=== PATIENT | female | born 1985 | race Caucasian/White ===

== ENCOUNTER 2016-07-06 09:29 | Emergency (ER) | payer OTHER, MEDICAID ==
--- NOTE | 2016-07-06 10:30 | ER Document Report ---
ED Extremity Problem, Lower - General Chief Complaint: Leg Pain Stated Complaint: LEG PAIN Time seen by provider: 10:27 Mode of Arrival: Ambulatory Information source: Patient, Relative TRAVEL OUTSIDE OF THE [place] IN LAST 30 DAYS: No - HPI Location: Leg - Pt with 1 day h/o R calf pain. She has had multiple DVT's in the past treated by Dr. Poe in [place]. She is currently on eliSHADOW - Related Data Allergies/Adverse Reactions: caffeine [From Fioricet] Allergy (Severe, Verified 07/06/16 09:38) Face swells ibuprofen [From Motrin] Allergy (Severe, Verified 07/06/16 09:38) Triggers Lupus acetaminophen [From Fioricet] Allergy (Verified 07/06/16 09:38) butalbital [From Fioricet] Allergy (Verified 07/06/16 09:38) Past Medical History - General Information source: Patient, Relative - Social History Smoking Status: Never Smoker Cigarette use (# per day): No Chew tobacco use (# tins/day): No Smoking Education Provided: No Family History: Reviewed & Not Pertinent - Past Medical History Cardiac Medical History: Reports: Hx DVT Denies: Hx Coronary Artery Disease, Hx Heart Attack, Hx Hypertension Pulmonary Medical History: Reports: Hx Asthma - No attacks in 2 yrs, Hx Pneumonia - 2014 Denies: Hx Bronchitis, Hx COPD Neurological Medical History: Reports: Hx Cerebrovascular Accident - 04/2015, Some Rt sided weakness. Denies: Hx Seizures Musculoskeltal Medical History: Reports Hx Arthritis - Rheumatoid; Lupus Psychiatric Medical History: Reports: Hx Anxiety, Hx Depression Past Surgical History: Reports: Hx Neurologic Surgery - Brain surgery, Hx Umbilical Hernia, Hx Vascular Surgery - stents; left leg, pelvis x2 - Immunizations Hx Diphtheria, Pertussis, Tetanus Vaccination: Yes Review of Systems - Review of Systems Constitutional: No symptoms reported EENT: No symptoms reported Cardiovascular: No symptoms reported Respiratory: No symptoms reported Gastrointestinal: No symptoms reported Musculoskeletal: See HPI, Other - R calf pain -: Yes All other systems reviewed and negative Physical Exam - Vital signs Vitals: Temp Pulse Resp BP Pulse Ox 98.2 F 102 H 18 124/81 99 07/06/16 09:35 07/06/16 09:35 07/06/16 09:35 07/06/16 09:35 07/06/16 09:35 - General General appearance: Appears well In distress: None - Respiratory Respiratory status: No respiratory distress Breath sounds: Normal - Cardiovascular Rhythm: Regular Heart sounds: Normal auscultation - Extremities Calf: Tender - there is TTP of the R calf diffusely with no erythema, warmth, or swelling. She has FROM and is N/V intact Course - Vital Signs Vital signs: Temp Pulse Resp BP Pulse Ox 98.2 F 102 H 18 124/81 99 07/06/16 09:35 07/06/16 09:35 07/06/16 09:35 07/06/16 09:35 07/06/16 09:35 - Diagnostic Test Radiology reviewed: Reports reviewed - chronic DVT , nothing acute Discharge - Discharge Clinical Impression: Right calf pain Condition: Stable Additional Instructions: rest, continue current meds, return if worse
[2016-07-06 13:33] VITALS: BP 106/64
--- NOTE | 2016-07-06 13:43 | XCELERA REPORT ---
[address] [address] Lower Extremity Venous Evaluation Name: MOLINA GONZALES Age: 30 yrs Gender: Female : 1985 Patient Status: Emergency Patient Location: ER Study Date: 07/06/2016 11:34 AM Procedure: Color flow and duplex imaging of the veins of the right lower extremity as well as the left Common Femoral vein. Reason For Study: R calf pain Ordering Physician: ALFRED EMANUEL Performed By: Christoph Reynolds Right Sided Venous Evaluation Abnormal, echogenic content in the Common Femoral and Femoral veins. With collateral blood flow. Reflux noted in the Posterior Tibial vein. Left Sided Venous Evaluation The left common femoral vein is fully compressible. Spontaneous and phasic flow is present in the left common femoral vein. Critical Findings Discussed with Dr Hansen at about 1300. Interpretation Summary Chronic looking DVT in the right Femoral system. reflux also. Consistent with history of prior DVT. : ALFRED EMANUEL > Naldo Feliz
== END 2016-07-06 13:33 | disposition home or self-care (01) ==
LOC: ER 09:29
DX: M79.661 Pain in right lower leg (principal)
CPT/HCPCS: 93971; 99283

== ENCOUNTER → 2016-10-16 | Outpatient (CLI) | payer OTHER, MEDICAID | LOC: RAD 13:03 | PROVIDERS: ATTEND Obstetrics & Gynecology | DX: M54.42 Lumbago with sciatica, left side (principal); M54.41 Lumbago with sciatica, right side | CPT/HCPCS: 72110 ==

== ENCOUNTER → 2017-02-17 | Outpatient (CLI) | payer OTHER, MEDICAID ==
[2017-02-17 13:23] LABS: HEMATOCRIT 42.4 % (36.0-47.0); HEMOGLOBIN 14.4 g/dL (12.0-15.5); HGB HCT DIFFERENCE 0.8; MEAN CORPUSCULAR HEMOGLOBIN 30.2 pg (27.0-33.4); MEAN CORPUSCULAR HGB CONC 33.9 g/dL (32.0-36.0); MEAN CORPUSCULAR VOLUME 89 fl (80-97); RED BLOOD COUNT 4.77 10^6/uL (3.72-5.28); RED CELL DISTRIBUTION WIDTH 13.1 % (11.5-14.0); WHITE BLOOD COUNT 4.7 10^3/uL (4.0-10.5)
[2017-02-19 08:10] LABS: EPSTEIN BARR EARLY AG IGG AB 10.8 U/mL (0.0-8.9)
== END ==
LOC: OD 12:35
PROVIDERS: ATTEND Obstetrics & Gynecology
DX: R53.83 Other fatigue (principal)
CPT/HCPCS: 36415; 85027; 86256; 86663; 86664; 86665

== ENCOUNTER 2017-03-05 09:43 | Emergency (ER) | payer MEDICAID, OTHER ==
--- NOTE | 2017-03-05 10:01 | ER Document Report ---
ED Medical Screen (RME) - General Chief Complaint: Swelling Stated Complaint: SWELLING AND HARD TO BREATH Time Seen by Provider: 03/05/17 09:55 TRAVEL OUTSIDE OF THE [place]. IN LAST 30 DAYS: No - HPI Notes: 03/05/17 09:56 Patient seen in by home health care nurse history of lupus SLE blood clots as IVC filter Eliquis states recent allergic reaction has been on high-dose prednisone for greater than a month now is having swelling no urine output for 2 days - Related Data Allergies/Adverse Reactions: caffeine [From Fioricet] Allergy (Severe, Verified 03/05/17 09:56) Face swells ibuprofen [From Motrin] Allergy (Severe, Verified 03/05/17 09:56) Triggers Lupus acetaminophen [From Fioricet] Allergy (Verified 03/05/17 09:56) butalbital [From Fioricet] Allergy (Verified 03/05/17 09:56) Past Medical History - Past Medical History Cardiac Medical History: Reports: Hx DVT Denies: Hx Coronary Artery Disease, Hx Heart Attack, Hx Hypertension Pulmonary Medical History: Reports: Hx Asthma - No attacks in 2 yrs, Hx Pneumonia - 2014 Denies: Hx Bronchitis, Hx COPD Neurological Medical History: Reports: Hx Cerebrovascular Accident - 04/2015, Some Rt sided weakness. Denies: Hx Seizures Renal/ Medical History: Denies: Hx Peritoneal Dialysis Musculoskeltal Medical History: Reports Hx Arthritis - Rheumatoid; Lupus Psychiatric Medical History: Reports: Hx Anxiety, Hx Depression Past Surgical History: Reports: Hx Neurologic Surgery - Brain surgery, Hx Umbilical Hernia, Hx Vascular Surgery - stents; left leg, pelvis x2 - Immunizations Hx Diphtheria, Pertussis, Tetanus Vaccination: Yes Review of Systems - Review of Systems Constitutional: Other - Swelling Physical Exam - Cardiovascular Rhythm: Regular, Tachycardia
--- NOTE | 2017-03-05 10:39 | RADIOLOGY REPORT (SQ) ---
EXAM DESCRIPTION: CHEST PA/LAT COMPLETED DATE/TIME: 03/05/2017 10:19 am REASON FOR STUDY: sob COMPARISON: 12/01/2013 EXAM PARAMETERS: NUMBER OF VIEWS: two views TECHNIQUE: Digital Frontal and Lateral radiographic views of the chest acquired. RADIATION DOSE: NA LIMITATIONS: none FINDINGS: LUNGS AND PLEURA: No opacities, masses or pneumothorax. No pleural effusion. MEDIASTINUM AND HILAR STRUCTURES: No masses or contour abnormalities. HEART AND VASCULAR STRUCTURES: Heart normal size. No evidence for failure. BONES: No acute findings. HARDWARE: None in the chest. OTHER: No other significant finding. IMPRESSION: NO SIGNIFICANT RADIOGRAPHIC FINDING IN THE CHEST. TECHNICAL DOCUMENTATION: JOB ID: [id number] [email or web address] All Rights Reserved
[2017-03-05 10:45] LABS: PARTIAL THROMBOPLASTIN TIME 25.2 SEC (23.5-35.8)
[2017-03-05 10:57] LABS: HEMOGLOBIN 13.2 g/dL (12.0-15.5); HGB HCT DIFFERENCE -0.4; MEAN CORPUSCULAR HGB CONC 33.1 g/dL (32.0-36.0); MEAN CORPUSCULAR VOLUME 91 fl (80-97); RED BLOOD COUNT 4.42 10^6/uL (3.72-5.28); RED CELL DISTRIBUTION WIDTH 13.9 % (11.5-14.0); WHITE BLOOD COUNT 16.2 10^3/uL (4.0-10.5)
--- NOTE | 2017-03-05 11:02 | ER Document Report ---
ED General - General Chief Complaint: Swelling Stated Complaint: SWELLING AND HARD TO BREATH Time Seen by Provider: 03/05/17 09:55 Notes: The patient is a 31-year-old female, past medical history SLE, DVTs, PAD, presents with 3 days of peripheral edema and mild shortness of breath. She is taking Eliquis and has an IVC filter. Patient has been on steroids for 1 month and has a taper scheduled for the next month due to an allergic reaction and because of her SLE. Patient denies chest pain, hemoptysis, cough, fevers, abdominal pain, nausea, vomiting, numbness, tingling or leg injuries. TRAVEL OUTSIDE OF THE [place] IN LAST 30 DAYS: No - Related Data Allergies/Adverse Reactions: caffeine [From Fioricet] Allergy (Severe, Verified 03/05/17 09:56) Face swells ibuprofen [From Motrin] Allergy (Severe, Verified 03/05/17 09:56) Triggers Lupus acetaminophen [From Fioricet] Allergy (Verified 03/05/17 09:56) butalbital [From Fioricet] Allergy (Verified 03/05/17 09:56) Home Medications: Current Home Medications Prednisone 30 mg PO BID 03/05/17 [History] Past Medical History - General Information source: Patient - Social History Smoking Status: Current Some Day Smoker Family History: Reviewed & Not Pertinent Patient has suicidal ideation: No Patient has homicidal ideation: No - Past Medical History Cardiac Medical History: Reports: Hx DVT Denies: Hx Coronary Artery Disease, Hx Heart Attack, Hx Hypertension Pulmonary Medical History: Reports: Hx Asthma - No attacks in 2 yrs, Hx Pneumonia - 2014 Denies: Hx Bronchitis, Hx COPD Neurological Medical History: Reports: Hx Cerebrovascular Accident - 04/2015, Some Rt sided weakness. Denies: Hx Seizures Renal/ Medical History: Denies: Hx Peritoneal Dialysis Musculoskeltal Medical History: Reports Hx Arthritis - Rheumatoid; Lupus Psychiatric Medical History: Reports: Hx Anxiety, Hx Depression Past Surgical History: Reports: Hx Neurologic Surgery - Brain surgery, Hx Umbilical Hernia, Hx Vascular Surgery - stents; left leg, pelvis x2 - Immunizations Hx Diphtheria, Pertussis, Tetanus Vaccination: Yes Review of Systems - Review of Systems Notes: REVIEW OF SYSTEMS: CONSTITUTIONAL: -fevers, -chills EENT: -eye pain, -difficulty swallowing, -nasal congestion CARDIOVASCULAR:-chest pain, -syncope. RESPIRATORY: -cough, -SOB GASTROINTESTINAL: -abdominal pain, - nausea, -vomiting, -diarrhea GENITOURINARY: -dysuria, -hematuria MUSCULOSKELETAL: -back pain, -neck pain, +peripheral edema SKIN: -rash or skin lesions. HEMATOLOGIC: -easy bruising or bleeding. LYMPHATIC: -swollen, enlarged glands. NEUROLOGICAL: -altered mental status or loss of consciousness, -headache, - neurologic symptoms PSYCHIATRIC: -anxiety, -depression. ALL OTHER SYSTEMS REVIEWED AND NEGATIVE. Physical Exam - Vital signs Vitals: Resp BP Pulse Ox 24 H 120/71 97 03/05/17 10:45 03/05/17 10:45 03/05/17 10:45 - Notes Notes: PHYSICAL EXAMINATION: GENERAL: Well-appearing, well-nourished and in no acute distress. HEAD: Atraumatic, normocephalic. EYES: Pupils equal round and reactive to light, extraocular movements intact, sclera anicteric, conjunctiva are normal. ENT: nares patent, oropharynx clear without exudates. Moist mucous membranes. NECK: Normal range of motion, supple without lymphadenopathy LUNGS: Breath sounds clear to auscultation bilaterally and equal. No wheezes rales or rhonchi. No respiratory distress. HEART: Regular rate and rhythm without murmurs ABDOMEN: Soft, nontender, normoactive bowel sounds. No guarding, no rebound. No masses appreciated. EXTREMITIES: Normal range of motion. Strong distal pulses. 1+ edema to ankles. NEUROLOGICAL: Cranial nerves grossly intact. Normal speech, normal gait. Normal sensory and motor exams. PSYCH: Normal mood, normal affect. SKIN: Warm, Dry, normal turgor, no rashes or lesions noted. Course - Re-evaluation Re-evalutation: Patient is in no respiratory distress. Her chest x-ray does not show pulmonary edema and she is oxygenating 98% on room air. Her labs are unremarkable, other than a leukocytosis, which is most likely from her chronic steroid use and not infection. Her ultrasound shows no DVT. Suspect that her mild peripheral edema is from her large steroid course where she was started on 380 mg prednisone daily by her primary care physician. She has a slow taper over the next 3 weeks. Pt also has positive leukocyte esterase and 5 WBCs with urinary hesitancy. Will begin her on Macrobid. Patient will be also started on a few days of Lasix to help with the peripheral edema with f/u at her PMD. Given very strict return precautions and she understands. - Vital Signs Vital signs: Temp Pulse Resp BP Pulse Ox 82 16 113/70 97 03/05/17 13:08 03/05/17 13:08 03/05/17 13:08 03/05/17 13:08 - Laboratory Result Diagrams: 03/05/17 10:10 03/05/17 10:10 Laboratory results interpreted by me: 03/05/17 03/05/17 03/05/17 10:10 10:10 10:10 WBC 16.2 H Seg Neuts % (Manual) 79 H Band Neutrophils % 1 L Metamyelocytes % 1 H Abs Neuts (Manual) 13.1 H BUN 22 H NT-Pro-B Natriuret Pep 273 H Ur Leukocyte Esterase 03/05/17 12:04 WBC Seg Neuts % (Manual) Band Neutrophils % Metamyelocytes % Abs Neuts (Manual) BUN NT-Pro-B Natriuret Pep Ur Leukocyte Esterase MODERATE H - Diagnostic Test Radiology reviewed: Image reviewed, Reports reviewed Radiology results interpreted by me: CXR: NAD B/L LE US: No DVTs. - EKG Interpretation by Me EKG shows normal: Sinus rhythm, [place], Intervals, QRS Complexes, ST-T Waves Rate: Normal Discharge - Discharge Clinical Impression: Dysuria, Peripheral edema Condition: Stable Disposition: HOME, SELF-CARE Additional Instructions: Edema, Peripheral You have swelling in your legs. This is called peripheral edema. It can be caused by "leaky capillaries," inflammation, disease of the leg veins, or excess salt and water in your body. Edema may be a sign of heart, kidney, or liver disease. A medical evaluation can determine if there is a serious underlying cause for your edema. Avoid prolonged standing. If you must sit for a long time, occasionally get up and walk around or elevate your legs. Support stockings can be helpful in limiting swelling. Often diuretic or water pills are used to remove excess salt and water from your body. Call the doctor or return if you develop increased swelling, pain, or redness, shortness of breath, chest pain, or any other significant change. URINARY TRACT INFECTION: Your evaluation indicates that you have a urinary tract infection. This is due to germs growing in the bladder. This is a common problem. This infection usually responds quickly to antibiotics. Your antibiotic should be taken exactly as prescribed. Drink plenty of fluids -- three to four quarts a day. Occasionally, a bladder anesthetic will be prescribed to help stop the feeling of urgency until the antibiotic has a chance to clear the infection. This may cause your urine to be dark orange. Certain urine infections require a culture. If the doctor obtained a culture, the results will be back in two days. You should call to see if a change in treatment is needed. A repeat urinalysis after you finish treatment is often recommended. The physician will let you know if further testing is required. Call the doctor if you develop fever, chills, flank pain, inability to urinate, or blood in the urine. ANTIBIOTIC THERAPY: You have been given an antibiotic prescription. It's important that you take all the medication, unless instructed otherwise by your physician. Failure to complete the entire course can result in relapse of your condition. Common side effects of antibiotics include nausea, intestinal cramping, or diarrhea. Women may develop vaginal yeast infections, and babies can get yeast (thrush) in the mouth following the use of antibiotics. Contact your physician if you develop significant side effects from this medication. Allergy to this antibiotic can result in hives, wheezing, faintness, or itching. If symptoms of allergy occur, stop the medication and call the doctor. NITROFURANTOIN (MACRODANTIN, MACROBID): You have received a prescription for nitrofurantoin (Macrodantin). This antibiotic is used for urinary tract infections. Women who are or nursing should notify the physician before taking this medicine. If you have ever had a problem caused by this medication in the past, be sure the physician is aware of it. Common side effects of this medicine include nausea, vomiting, or decreased appetite. Notify your physician if these side effects become severe. Immediately stop this medicine and call the physician if you develop cough , shortness of breath, chest pain, weakness, jaundice (yellow color of the skin and whites of the eyes), or a skin rash. URINARY ANESTHETIC AGENT: You have been given a medication (Pyridium) for urinary tract discomfort. This medicine numbs the lining of the bladder and urethra, resulting in less pain, burning, and urgency. You may take it as needed, according to instructions. When the symptoms resolve, you can stop this medication (be sure to continue any other medications the doctor has given you). This medicine turns the urine a dark orange. It may stain underwear. Occasionally, it can cause nausea. Return for evaluation if there are any unexpected effects, such as itching, hives, or shortness of breath. FOLLOW-UP CARE: If you have been referred to a physician for follow-up care, call the physician s office for an appointment as you were instructed or within the next two days. If you experience worsening or a significant change in your symptoms, notify the physician immediately or return to the Emergency Department at any time for re-evaluation. Prescriptions: Furosemide [Lasix 20 mg Tablet] 20 mg PO QAM #4 tablet Nitrofurantoin/Nitrofuran Mac [Macrobid 100 mg Capsule] 1 tab PO BID #10 capsule Referrals: JANINA GARCIA MD [Primary Care Provider] - Follow up as needed
[2017-03-05 11:07] LABS: ANION GAP 11 (5-19); BLOOD UREA NITROGEN 22 mg/dL (7-20); CALCIUM 8.9 mg/dL (8.4-10.2); CARBON DIOXIDE 27 mmol/L (22-30); CHLORIDE 101 mmol/L (98-107); CREATININE RESULT 0.57 mg/dL (0.52-1.25); GLUCOSE 82 mg/dL (75-110); POTASSIUM 4.4 mmol/L (3.6-5.0); SODIUM 139.1 mmol/L (137-145)
[2017-03-05 11:24] LABS: BAND NEUTROPHILS % (MANUAL) 1 % (3-5); BASOPHILS % (MANUAL) 0 % (0-2); EOSINOPHILS % (MANUAL) 0 % (0-6); LYMPHOCYTES % (MANUAL) 14 % (13-45); TOTAL CELLS COUNTED 100
[2017-03-05 11:26] LABS: PLATELET CLUMPS PRESENT; POLYCHROMASIA SLIGHT; STOMATOCYTES SLIGHT
--- NOTE | 2017-03-05 12:02 | XCELERA REPORT ---
[address] [address] Lower Extremity Venous Evaluation Name: MOLINA GONZALES Age: 31 yrs Gender: Female : 1985 Patient Status: Emergency Patient Location: ER Study Date: 03/05/2017 10:35 AM Procedure: Color flow and duplex imaging bilaterally of the veins of the lower extremities as well as the Common Femoral veins. Reason For Study: bilateral swelling Ordering Physician: KACIE FERNANDEZ Performed By: Rukhsana Walton Right Sided Venous Evaluation Normal vessel filling wall to wall, compression and augmentation as well as Colour flow down to the infrageniculate veins. Left Sided Venous Evaluation Normal vessel filling wall to wall, compression and augmentation as well as Colour flow down to the infrageniculate veins. Interpretation Summary No duplex evidence of DVT or obstruction in the bilateral lower extremities. : KACIE FERNANDEZ > Naldo Feliz
[2017-03-05 12:22] LABS: APPEARANCE,URINE SLIGHTLY-CLOUDY; BILIRUBIN,URINE NEGATIVE (NEGATIVE); GLUCOSE, URINE NEGATIVE (NEGATIVE); KETONES,URINE NEGATIVE (NEGATIVE); LEUKOCYTE ESTERASE,URINE MODERATE (NEGATIVE); NITRITE,URINE NEGATIVE (NEGATIVE); PROTEIN,URINE NEGATIVE (NEGATIVE); URINE SPECIFIC GRAVITY 1.011; UROBILINOGEN,URINE NEGATIVE mg/dL (<2.0)
[2017-03-05 13:09] VITALS: BP 113/70
--- NOTE | 2017-03-05 21:57 | EKG REPORT ---
SEVERITY:- BORDERLINE ECG - SINUS RHYTHM BORDERLINE T ABNORMALITIES, ANTERIOR LEADS : Confirmed by: Suzy Rodrigues 05-Mar-2017 21:56:55
== END 2017-03-05 13:10 | disposition home or self-care (01) ==
LOC: ER 09:43
DX: R60.0 Localized edema (principal); R30.0 Dysuria; I73.9 Peripheral vascular disease, unspecified; M32.9 Systemic lupus erythematosus, unspecified; J45.909 Unspecified asthma, uncomplicated; D72.829 Elevated white blood cell count, unspecified; R39.11 Hesitancy of micturition; Z79.52 Long term (current) use of systemic steroids; Z86.718 Personal history of other venous thrombosis and embolism; Z95.820 Peripheral vascular angioplasty status with implants and grafts
CPT/HCPCS: 36415; 71020; 80048; 81001; 83880; 84703; 85025; 85610; 85730; 93005; 93010; 93970; 99284

== ENCOUNTER → 2017-03-16 | Outpatient (CLI) | payer MEDICAID ==
[2017-03-16 12:55] LABS: HEMATOCRIT 42.7 % (36.0-47.0); HEMOGLOBIN 14.3 g/dL (12.0-15.5); HGB HCT DIFFERENCE 0.2; MEAN CORPUSCULAR HEMOGLOBIN 30.5 pg (27.0-33.4); MEAN CORPUSCULAR HGB CONC 33.4 g/dL (32.0-36.0); MEAN CORPUSCULAR VOLUME 91 fl (80-97); RED BLOOD COUNT 4.67 10^6/uL (3.72-5.28); WHITE BLOOD COUNT 4.5 10^3/uL (4.0-10.5)
[2017-03-16 12:56] LABS: APPEARANCE,URINE CLEAR; BILIRUBIN,URINE NEGATIVE (NEGATIVE); GLUCOSE, URINE NEGATIVE (NEGATIVE); KETONES,URINE NEGATIVE (NEGATIVE); LEUKOCYTE ESTERASE,URINE NEGATIVE (NEGATIVE); NITRITE,URINE NEGATIVE (NEGATIVE); PROTEIN,URINE NEGATIVE (NEGATIVE); URINE SPECIFIC GRAVITY 1.003; UROBILINOGEN,URINE NEGATIVE mg/dL (<2.0)
[2017-03-16 13:27] LABS: ALANINE AMINOTRANSFERASE 39 U/L (9-52); ALBUMIN 4.3 g/dL (3.5-5.0); ALKALINE PHOSPHATASE 82 U/L (38-126); ANION GAP 11 (5-19); ASPARTATE AMINO TRANSFERASE 23 U/L (14-36); BILIRUBIN,DIRECT 0.3 mg/dL (0.0-0.4); BILIRUBIN,TOTAL 0.4 mg/dL (0.2-1.3); BLOOD UREA NITROGEN 14 mg/dL (7-20); CALCIUM 9.4 mg/dL (8.4-10.2); CARBON DIOXIDE 24 mmol/L (22-30); CHLORIDE 105 mmol/L (98-107); CREATININE RESULT 0.64 mg/dL (0.52-1.25); GLUCOSE 89 mg/dL (75-110); POTASSIUM 4.6 mmol/L (3.6-5.0); SODIUM 140.3 mmol/L (137-145); TOTAL PROTEIN 6.9 g/dL (6.3-8.2)
[2017-03-16 13:37] LABS: ERYTHROCYTE SEDIMENTATION RATE 15 mm/hr (0-20)
== END ==
LOC: OD 11:24
PROVIDERS: ATTEND Obstetrics & Gynecology
DX: D68.62 Lupus anticoagulant syndrome (principal); R63.5 Abnormal weight gain; E87.79 Other fluid overload; Z79.891 Long term (current) use of opiate analgesic
CPT/HCPCS: 36415; 80053; 81001; 85027; 85652

== ENCOUNTER → 2017-03-19 | Outpatient (CLI) | payer MEDICAID ==
[2017-03-19 14:43] LABS: POTASSIUM 4.5 mmol/L (3.6-5.0); SODIUM 141.6 mmol/L (137-145)
== END ==
LOC: OD 12:52
PROVIDERS: ATTEND Obstetrics & Gynecology
DX: E87.6 Hypokalemia (principal); Z79.899 Other long term (current) drug therapy
CPT/HCPCS: 36415; 80051

== ENCOUNTER → 2017-06-08 | Outpatient (CLI) | payer OTHER, MEDICAID ==
[2017-06-08 11:38] LABS: HEMATOCRIT 41.9 % (36.0-47.0); HEMOGLOBIN 14.2 g/dL (12.0-15.5); HGB HCT DIFFERENCE 0.7; MEAN CORPUSCULAR HEMOGLOBIN 30.2 pg (27.0-33.4); MEAN CORPUSCULAR VOLUME 89 fl (80-97); RED BLOOD COUNT 4.72 10^6/uL (3.72-5.28); RED CELL DISTRIBUTION WIDTH 13.5 % (11.5-14.0); WHITE BLOOD COUNT 5.8 10^3/uL (4.0-10.5)
[2017-06-08 12:00] LABS: ALANINE AMINOTRANSFERASE 25 U/L (9-52); ALKALINE PHOSPHATASE 62 U/L (38-126); ANION GAP 9 (5-19); ASPARTATE AMINO TRANSFERASE 17 U/L (14-36); BILIRUBIN,DIRECT 0.4 mg/dL (0.0-0.4); BILIRUBIN,TOTAL 0.5 mg/dL (0.2-1.3); BLOOD UREA NITROGEN 11 mg/dL (7-20); CALCIUM 9.1 mg/dL (8.4-10.2); CARBON DIOXIDE 23 mmol/L (22-30); CHLORIDE 108 mmol/L (98-107); CREATININE RESULT 0.61 mg/dL (0.52-1.25); GLUCOSE 100 mg/dL (75-110); POTASSIUM 4.6 mmol/L (3.6-5.0); SODIUM 140.1 mmol/L (137-145); TOTAL PROTEIN 6.8 g/dL (6.3-8.2)
[2017-06-09 11:40] LABS: EPSTEIN BARR EARLY AG IGG AB <9.0 U/mL (0.0-8.9)
[2017-06-10 19:37] LABS: QUANTIFERON TB ANTIGEN VALUE 0.04 IU/mL (.); QUANTIFERON TB NIL VALUE 0.03 IU/mL (.)
== END ==
LOC: LAB 11:01
PROVIDERS: ATTEND Obstetrics & Gynecology
DX: M32.9 Systemic lupus erythematosus, unspecified (principal); Z86.718 Personal history of other venous thrombosis and embolism; Z51.81 Encounter for therapeutic drug level monitoring
CPT/HCPCS: 36415; 80053; 84443; 85027; 86256; 86480; 86663; 86664; 86665

== ENCOUNTER → 2017-07-30 | Outpatient (CLI) | payer OTHER, MEDICAID ==
[2017-07-30 13:46] LABS: POTASSIUM 5.3 mmol/L (3.6-5.0)
[2017-07-30 13:49] LABS: SODIUM 140.7 mmol/L (137-145)
[2017-08-02 07:01] LABS: EPSTEIN BARR EARLY AG IGG AB 9.8 U/mL (0.0-8.9); EPSTEIN BARR VCA IGG AB >600.0 U/mL (0.0-17.9); EPSTEIN BARR VCA IGM AB <36.0 U/mL (0.0-35.9)
== END ==
LOC: OD 11:47
PROVIDERS: ATTEND Obstetrics & Gynecology
DX: E87.6 Hypokalemia (principal); Z79.899 Other long term (current) drug therapy
CPT/HCPCS: 36415; 80051; 86256; 86663; 86664; 86665

== ENCOUNTER 2017-09-26 15:24 | Emergency (ER) | payer OTHER, MEDICAID ==
[2017-09-26] MEDS ORDERED: METOCLOPRAMIDE HCL INJ/PF 10 MG/2 ML SDV IV ONE ×2 (16:07→18:12)
[2017-09-26] MEDS ORDERED: DIPHENHYDRAMINE HCL 50 MG/ML VIAL IV ONE ×2 (16:07→18:12)
[2017-09-26 16:14] LABS: ABSOLUTE EOSINOPHILS # (AUTO) 0.1 10^3/uL (0.0-0.6); ABSOLUTE LYMPHOCYTES (AUTO) 1.3 10^3/uL (0.5-4.7); ABSOLUTE MONOCYTES (AUTO) 0.5 10^3/uL (0.1-1.4); ABSOLUTE NEUT (AUTO) 3.1 10^3/uL (1.7-8.2); BASOPHILS % (AUTO) 0.8 % (0-2); EOSINOPHILS % (AUTO) 2.1 % (0-6); HEMATOCRIT 38.3 % (36.0-47.0); HEMOGLOBIN 12.8 g/dL (12.0-15.5); LYMPHOCYTES % (AUTO) 25.3 % (13-45); MEAN CORPUSCULAR HEMOGLOBIN 29.1 pg (27.0-33.4); MEAN CORPUSCULAR HGB CONC 33.4 g/dL (32.0-36.0); MEAN CORPUSCULAR VOLUME 87 fl (80-97); MONOCYTES % (AUTO) 9.7 % (3-13); PLATELET COUNT 282 10^3/uL (150-450); RED BLOOD COUNT 4.39 10^6/uL (3.72-5.28); RED CELL DISTRIBUTION WIDTH 13.4 % (11.5-14.0); SEGMENTED NEUTROPHILS % (AUTO) 62.1 % (42-78); TOTAL CELLS COUNTED % (AUTO) 100 %
[2017-09-26 16:35] LABS: INTERNATIONAL RATION (INR) 0.97; PROTHROMBIN TIME 13.6 SEC (11.4-15.4)
[2017-09-26 16:40] LABS: ALANINE AMINOTRANSFERASE 49 U/L (9-52); ALBUMIN 4.3 g/dL (3.5-5.0); ALKALINE PHOSPHATASE 68 U/L (38-126); ANION GAP 9 (5-19); ASPARTATE AMINO TRANSFERASE 38 U/L (14-36); BILIRUBIN,DIRECT 0.1 mg/dL (0.0-0.4); BILIRUBIN,TOTAL 0.4 mg/dL (0.2-1.3); BLOOD UREA NITROGEN 14 mg/dL (7-20); CALCIUM 9.8 mg/dL (8.4-10.2); CARBON DIOXIDE 26 mmol/L (22-30); CHLORIDE 106 mmol/L (98-107); GLUCOSE 78 mg/dL (75-110); POTASSIUM 4.5 mmol/L (3.6-5.0); SODIUM 141.4 mmol/L (137-145); TOTAL PROTEIN 6.9 g/dL (6.3-8.2)
--- NOTE | 2017-09-26 16:52 | ER Document Report ---
ED General - General Chief Complaint: Headache >24 hrs old Stated Complaint: HEADACHE Time Seen by Provider: 09/26/17 15:41 Mode of Arrival: Ambulatory Information source: Patient Notes: This is a 32-year-old female with a history of CVA (lupus), cerebral aneurysm ( 2015), migraine headaches, antiphospholipid (on Arixtra, IVC filter) who presents to the emergency room with a headache for 3 days. Patient states her normal headaches are in the frontal area and this 1 is different and that it is in the right occipital area. She states that she can massage the back of her head and it will improve the headache but it comes back. She denies any fever, photophobia, neck stiffness. She denies any neck pain. She has been taking Imitrex (prescribed by her neurologist in [place] Dr. Sexton) but that has not helped. She also takes Phenergan and Zofran. She states she was treated for a respiratory infection 2 weeks ago with levofloxacin. TRAVEL OUTSIDE OF THE [place] IN LAST 30 DAYS: No - HPI Onset: Other - 3 days ago Quality of pain: Dull Severity: Moderate Pain Level: 2 Associated symptoms: denies: Chest pain, Fever, Shortness of breath Exacerbated by: Denies Relieved by: Denies Similar symptoms previously: No Recently seen / treated by doctor: No - Related Data Allergies/Adverse Reactions: caffeine [From Fioricet] Allergy (Severe, Verified 09/26/17 15:27) Face swells ibuprofen [From Motrin] Allergy (Severe, Verified 09/26/17 15:27) Triggers Lupus acetaminophen [From Fioricet] Allergy (Verified 09/26/17 15:27) butalbital [From Fioricet] Allergy (Verified 09/26/17 15:27) Past Medical History - General Information source: Patient - Social History Smoking Status: Never Smoker Cigarette use (# per day): No Chew tobacco use (# tins/day): No Frequency of alcohol use: None Drug Abuse: None Lives with: Family Family History: Reviewed & Not Pertinent Patient has suicidal ideation: No Patient has homicidal ideation: No - Past Medical History Cardiac Medical History: Reports: Hx DVT Denies: Hx Coronary Artery Disease, Hx Heart Attack, Hx Hypertension Pulmonary Medical History: Reports: Hx Asthma - No attacks in 2 yrs, Hx Pneumonia - 2014 Denies: Hx Bronchitis, Hx COPD Neurological Medical History: Reports: Hx Cerebrovascular Accident - 04/2015, Some Rt sided weakness. Denies: Hx Seizures Renal/ Medical History: Denies: Hx Peritoneal Dialysis Musculoskeltal Medical History: Reports Hx Arthritis - Rheumatoid; Lupus Psychiatric Medical History: Reports: Hx Anxiety, Hx Depression Past Surgical History: Reports: Hx Neurologic Surgery - Brain surgery, Hx Umbilical Hernia, Hx Vascular Surgery - stents; left leg, pelvis x2 - Immunizations Hx Diphtheria, Pertussis, Tetanus Vaccination: Yes Review of Systems - Review of Systems Constitutional: denies: Chills, Fever EENT: denies: Eye discharge, Blurred vision, Ear pain, Sinus pressure, Sinus discharge Cardiovascular: denies: Chest pain, Palpitations Respiratory: No symptoms reported Gastrointestinal: denies: Abdominal pain, Vomiting, Poor appetite Genitourinary: No symptoms reported Female Genitourinary: No symptoms reported Musculoskeletal: No symptoms reported Skin: No symptoms reported Hematologic/Lymphatic: No symptoms reported Neurological/Psychological: See HPI Physical Exam - Vital signs Vitals: Temp Pulse Resp BP Pulse Ox 98.3 F 90 20 125/80 100 09/26/17 15:27 09/26/17 15:27 09/26/17 15:27 09/26/17 15:27 09/26/17 15:27 Notes: Physical exam: GENERAL: 32-year-old female, alert and oriented 3, afebrile, no acute distress. The patient is very conversant and affable and does not appear in any significant distress. HEAD: Atraumatic, normocephalic. She does have some tenderness over the right occipital scalp where her headache is but there is no lesions or skin changes or swelling in that area. EYES: Pupils equal round and reactive to light, extraocular movements intact, sclera anicteric, conjunctiva are normal. ENT: TMs normal, nares patent, oropharynx clear without exudates. Moist mucous membranes. NECK: Normal range of motion, supple without obvious mass or JVD. LUNGS: Breath sounds clear to auscultation bilaterally and equal. No wheezes rales or rhonchi. HEART: Regular rate and rhythm without murmurs, rubs or gallops. ABDOMEN: Soft, normoactive bowel sounds. No tenderness to palpation. No guarding, no rebound. No masses appreciated. EXTREMITIES: Normal range of motion, no pitting or edema. No clubbing or cyanosis. NEUROLOGICAL: Cranial nerves II through XII grossly intact. Normal speech, moving all extremities. Her motor dean of instruction is symmetrical and strong, sensory is grossly intact, cerebellar (finger to nose) is good, her sensory is intact. Patient has a supple neck and does not exhibit any meningismus. PSYCH: Normal mood, normal affect. SKIN: Warm, Dry, normal turgor, no rashes or lesions noted. Course - Vital Signs Vital signs: Temp Pulse Resp BP Pulse Ox 98.3 F 90 19 130/95 H 100 09/26/17 15:27 09/26/17 15:27 09/26/17 16:01 09/26/17 15:35 09/26/17 16:01 - Laboratory Result Diagrams: 09/26/17 15:54 09/26/17 15:54 Laboratory results interpreted by me: 09/26/17 15:54 AST 38 H Discharge - Discharge Clinical Impression: Atypical migraine Condition: Stable Disposition: HOME, SELF-CARE Additional Instructions: As we discussed, the CT of the head as well as the CT angiogram showed no blood or evidence of aneurysm. Your blood work was quite good today. I recommend you rest, drink plenty of fluids, take the medicine as prescribed. Follow-up with Dr. Garcia tomorrow. Also, follow-up with Dr. Sexton of neurology in [place]. Bring a copy of CT report and labs to Dr. Garcia tomorrow. Also, when you see Dr. Sexton, have a CT on disc as well as the CT report. Return to the ER for worsening headache, fever (temperature greater than 100.4) or any concerns or getting worse. Referrals: JANINA GARCIA MD [Primary Care Provider] - Follow up tomorrow
--- NOTE | 2017-09-26 17:01 | RADIOLOGY REPORT (SQ) ---
EXAM DESCRIPTION: CT HEAD WITHOUT COMPLETED DATE/TIME: 09/26/2017 4:51 pm REASON FOR STUDY: right posetrior headache COMPARISON: 11/11/2015 TECHNIQUE: Axial images acquired through the brain without intravenous contrast. Images reviewed wi th bone, brain and subdural windows. Images stored on PACS. All CT scanners at this facility use dose modulation, iterative reconstruction, and/or weight based d osing when appropriate to reduce radiation dose to as low as reasonably achievable (ALARA). [facility]: Dose Right [facility]: CareDose [facility]: Dose Right [facility]: Teradose 4D [facility]: [employer] RADIATION DOSE: CT Rad equipment meets quality standard of care and radiation dose reduction techniq ues were employed. CTDIvol: 64.6 mGy. DLP: 1163 mGy-cm. mGy. LIMITATIONS: None. FINDINGS: VENTRICLES: Normal size and contour. CEREBRUM: No masses. No hemorrhage. No midline shift. No evidence for acute infarction. Normal gra y/white matter differentiation. No areas of low density in the white matter. CEREBELLUM: No masses. No hemorrhage. Stable encephalomalacia right cerebellar hemisphere. No evid ence for acute infarction. EXTRAAXIAL SPACES: No fluid collections. No masses. ORBITS AND GLOBE: No intra- or extraconal masses. Normal contour of globe without masses. CALVARIUM: Stable postoperative change related to suboccipital craniectomy. PARANASAL SINUSES: No fluid or mucosal thickening. SOFT TISSUES: No mass or hematoma. OTHER: No other significant finding. IMPRESSION: NO ACUTE INTRACRANIAL PROCESS. NO SIGNIFICANT CHANGE FROM PRIOR STUDY. EVIDENCE OF ACUTE STROKE: NO. COMMENT: Quality ID # 436: Final reports with documentation of one or more dose reduction techniques (e.g., Automated exposure control, adjustment of the mA and/or kV according to patient size, use of iterative reconstruction technique) TECHNICAL DOCUMENTATION: JOB ID: [id number] [employer]- All Rights Reserved Reading location - IP/workstation name: [email or web address]
[2017-09-26] MEDS ORDERED: DEXAMETHASONE SOD PHOS INJ 10 MG/1 ML VIAL IV ONE (18:12)
--- NOTE | 2017-09-26 18:49 | RADIOLOGY REPORT (SQ) ---
EXAM DESCRIPTION: CTA NECK; CTA HEAD COMPLETED DATE/TIME: 09/26/2017 6:13 pm REASON FOR STUDY: right sided headache, h/o aneurysm COMPARISON: CT brain 11/11/2015, 09/26/2017, 05/01/2015 MRI brain 07/04/2015 TECHNIQUE: Axial dynamic scanning technique with dynamic contrast enhancement through the extra-aircraft log clerk nial carotid and vertebral arteries. Multiplanar reconstruction. 3-D MIPS and Volume-rendered imag es acquired at the workstation and saved to PACS. Images are reviewed in soft tissue, bone, lung w indows. Axial dynamic scanning technique with dynamic contrast enhancement through the intracranial carotid and vertebral arteries. Multiplanar reconstruction. 3-D MIPS and Volume-rendered images acquired at the workstation and saved to PACS. Images are reviewed in soft tissue and bone windows. All CT scanners at this facility use dose modulation, iterative reconstruction, and/or weight based d osing when appropriate to reduce radiation dose to as low as reasonably achievable (ALARA). [facility]: Dose Right [facility]: CareDose [facility]: Dose Right [facility]: Teradose 4D [facility]: [employer] CONTRAST TYPE AND DOSE: contrast/concentration: Isovue 370.00 mg/ml; Total Contrast Delivered: 70.0 ml; Total Saline Delivered: 75.0 ml RENAL FUNCTION: Creatinine 0.6 LIMITATIONS: None. FINDINGS: EXTRACRANIAL CIRCULATION: AORTIC ARCH: Normal three-vessel origin. Bilateral subclavian arteries are patent. No dissection. RIGHT CAROTIDS: Patent common, internal and external carotid arteries without suggestion of significa nt stenosis or irregular plaque. No dissection. RIGHT VERTEBRAL: Patent. No dissection. LEFT CAROTIDS: Patent common, internal and external carotid arteries without suggestion of significan t stenosis or irregular plaque. No dissection. LEFT VERTEBRAL: Patent. No dissection. INTRACRANIAL CIRCULATION: No [place] stenosis, vascular malformation, or aneurysm. Codominant vertebral arteries. Br ain parenchyma, ventricles, extra-axial CSF spaces are unremarkable. Patient is post right suboccipital craniectomy for decompression of a Chiari 1 malformation. There i s encephalomalacia in the right inferior medial cerebellar hemisphere, similar compared to CT exams f rom 09/26/2017, 11/11/2015, and 05/01/2015. OTHER: Lung apices are clear. No neck masses or adenopathy. Paranasal sinuses, mastoid air cells ar e clear. Cervical spine unremarkable. Thyroid unremarkable. OTHER: 3-D reconstructions confirm findings. IMPRESSION: NORMAL CTA OF THE INTRACRANIAL AND EXTRA-CRANIAL CAROTID AND VERTEBRAL ARTERIES. STABLE POSTOPERATIVE CHANGES OF OCCIPITAL CRANIECTOMY, AND ENCEPHALOMALACIA IN THE RIGHT MEDIAL CEREB ELLAR HEMISPHERE COMPARED TO PREVIOUS STUDIES. COMMENT: Quality ID #[id number]: Measurements of distal internal carotid diameter were used as the denomina tor for stenosis measurement. TECHNICAL DOCUMENTATION: JOB ID: [id number] Quality ID # 436: Final reports with documentation of one or more dose reduction techniques (e.g., Au tomated exposure control, adjustment of the mA and/or kV according to patient size, use of iterative reconstruction technique) 2010 [employer]- All Rights Reserved Reading location - IP/workstation name: [email or web address]
--- NOTE | 2017-09-26 18:49 | RADIOLOGY REPORT (SQ) ---
EXAM DESCRIPTION: CTA NECK; CTA HEAD COMPLETED DATE/TIME: 09/26/2017 6:13 pm REASON FOR STUDY: right sided headache, h/o aneurysm COMPARISON: CT brain 11/11/2015, 09/26/2017, 05/01/2015 MRI brain 07/04/2015 TECHNIQUE: Axial dynamic scanning technique with dynamic contrast enhancement through the extra-hog scraper nial carotid and vertebral arteries. Multiplanar reconstruction. 3-D MIPS and Volume-rendered imag es acquired at the workstation and saved to PACS. Images are reviewed in soft tissue, bone, lung w indows. Axial dynamic scanning technique with dynamic contrast enhancement through the intracranial carotid and vertebral arteries. Multiplanar reconstruction. 3-D MIPS and Volume-rendered images acquired at the workstation and saved to PACS. Images are reviewed in soft tissue and bone windows. All CT scanners at this facility use dose modulation, iterative reconstruction, and/or weight based d osing when appropriate to reduce radiation dose to as low as reasonably achievable (ALARA). [facility]: Dose Right [facility]: CareDose [facility]: Dose Right [facility]: Teradose 4D [facility]: [employer] CONTRAST TYPE AND DOSE: contrast/concentration: Isovue 370.00 mg/ml; Total Contrast Delivered: 70.0 ml; Total Saline Delivered: 75.0 ml RENAL FUNCTION: Creatinine 0.6 LIMITATIONS: None. FINDINGS: EXTRACRANIAL CIRCULATION: AORTIC ARCH: Normal three-vessel origin. Bilateral subclavian arteries are patent. No dissection. RIGHT CAROTIDS: Patent common, internal and external carotid arteries without suggestion of significa nt stenosis or irregular plaque. No dissection. RIGHT VERTEBRAL: Patent. No dissection. LEFT CAROTIDS: Patent common, internal and external carotid arteries without suggestion of significan t stenosis or irregular plaque. No dissection. LEFT VERTEBRAL: Patent. No dissection. INTRACRANIAL CIRCULATION: No [place] stenosis, vascular malformation, or aneurysm. Codominant vertebral arteries. Br ain parenchyma, ventricles, extra-axial CSF spaces are unremarkable. Patient is post right suboccipital craniectomy for decompression of a Chiari 1 malformation. There i s encephalomalacia in the right inferior medial cerebellar hemisphere, similar compared to CT exams f rom 09/26/2017, 11/11/2015, and 05/01/2015. OTHER: Lung apices are clear. No neck masses or adenopathy. Paranasal sinuses, mastoid air cells ar e clear. Cervical spine unremarkable. Thyroid unremarkable. OTHER: 3-D reconstructions confirm findings. IMPRESSION: NORMAL CTA OF THE INTRACRANIAL AND EXTRA-CRANIAL CAROTID AND VERTEBRAL ARTERIES. STABLE POSTOPERATIVE CHANGES OF OCCIPITAL CRANIECTOMY, AND ENCEPHALOMALACIA IN THE RIGHT MEDIAL CEREB ELLAR HEMISPHERE COMPARED TO PREVIOUS STUDIES. COMMENT: Quality ID #[id number]: Measurements of distal internal carotid diameter were used as the denomina tor for stenosis measurement. TECHNICAL DOCUMENTATION: JOB ID: [id number] Quality ID # 436: Final reports with documentation of one or more dose reduction techniques (e.g., Au tomated exposure control, adjustment of the mA and/or kV according to patient size, use of iterative reconstruction technique) 2010 [employer]- All Rights Reserved Reading location - IP/workstation name: [email or web address]
[2017-09-26 19:33] VITALS: BP 116/76
== END 2017-09-26 19:25 | disposition home or self-care (01) ==
LOC: ER 15:24
DX: G43.909 Migraine, unspecified, not intractable, without status migrainosus (principal); J45.909 Unspecified asthma, uncomplicated; D68.61 Antiphospholipid syndrome; Z79.899 Other long term (current) drug therapy; Z86.73 Personal history of transient ischemic attack (TIA), and cerebral infarction without residual deficits; Z88.6 Allergy status to analgesic agent; Z88.5 Allergy status to narcotic agent; Z86.718 Personal history of other venous thrombosis and embolism
CPT/HCPCS: 96376; 99284; 96374; 96375; 36415; 85025; 85610; 80053; 70450; 70496; 70498; J1200; J2765; J1100

== ENCOUNTER 2017-09-28 21:34 | Emergency (ER) | payer OTHER, MEDICAID ==
--- NOTE | 2017-09-28 22:28 | RADIOLOGY REPORT (SQ) ---
EXAM DESCRIPTION: HAND RIGHT 3 VIEWS COMPLETED DATE/TIME: 09/28/2017 10:15 pm REASON FOR STUDY: Pain s/p injury COMPARISON: None. EXAM PARAMETERS: NUMBER OF VIEWS: Three views. TECHNIQUE: AP, lateral and oblique radiographic images acquired of the right hand. LIMITATIONS: None. FINDINGS: MINERALIZATION: Normal. BONES: No acute fracture or dislocation. No worrisome bone lesions. JOINTS: No effusions. SOFT TISSUES: No soft tissue swelling. No foreign body. OTHER: No other significant finding. IMPRESSION: NEGATIVE STUDY OF THE RIGHT HAND. NO RADIOGRAPHIC EVIDENCE OF ACUTE INJURY. TECHNICAL DOCUMENTATION: JOB ID: [id number] [employer]- All Rights Reserved Reading location - IP/workstation name: [email or web address]
--- NOTE | 2017-09-29 01:01 | ER Document Report ---
ED General - General Chief Complaint: Hand Pain Stated Complaint: RIGHT HAND INJURY Time Seen by Provider: 09/29/17 00:26 TRAVEL OUTSIDE OF THE [place] IN LAST 30 DAYS: No - HPI Patient complains to provider of: Right hand pain Notes: Patient coming in for evaluation of right hand pain. Patient states she was trying to load her horses when her hand was pulled to significant swelling night prior to arrival however having difficulty with range of motion of her fingers therefore came into the ER for further evaluation. Patient denies any pain in her elbow or shoulder. Resting comfortably upon my evaluation. - Related Data Allergies/Adverse Reactions: caffeine [From Fioricet] Allergy (Severe, Verified 09/26/17 15:27) Face swells ibuprofen [From Motrin] Allergy (Severe, Verified 09/26/17 15:27) Triggers Lupus acetaminophen [From Fioricet] Allergy (Verified 09/26/17 15:27) butalbital [From Fioricet] Allergy (Verified 09/26/17 15:27) Past Medical History - General Information source: Patient - Social History Smoking Status: Never Smoker Chew tobacco use (# tins/day): No Frequency of alcohol use: None Drug Abuse: None Family History: Reviewed & Not Pertinent Patient has suicidal ideation: No Patient has homicidal ideation: No - Past Medical History Cardiac Medical History: Reports: Hx DVT Denies: Hx Coronary Artery Disease, Hx Heart Attack, Hx Hypertension Pulmonary Medical History: Reports: Hx Asthma, Hx Pneumonia - 2014 Denies: Hx Bronchitis, Hx COPD Neurological Medical History: Reports: Hx Cerebrovascular Accident - 04/2015, Some Rt sided weakness. Denies: Hx Seizures Renal/ Medical History: Denies: Hx Peritoneal Dialysis Musculoskeltal Medical History: Reports Hx Arthritis - Rheumatoid; Lupus Psychiatric Medical History: Reports: Hx Anxiety, Hx Depression Past Surgical History: Reports: Hx Neurologic Surgery - Brain surgery, Hx Umbilical Hernia, Hx Vascular Surgery - stents; left leg, pelvis x2 - Immunizations Hx Diphtheria, Pertussis, Tetanus Vaccination: Yes Review of Systems - Review of Systems Constitutional: No symptoms reported EENT: No symptoms reported Cardiovascular: No symptoms reported Respiratory: No symptoms reported Gastrointestinal: No symptoms reported Genitourinary: No symptoms reported Female Genitourinary: No symptoms reported Musculoskeletal: Other - Right hand pain Skin: No symptoms reported Hematologic/Lymphatic: No symptoms reported Neurological/Psychological: No symptoms reported Physical Exam - Vital signs Vitals: Temp Pulse Resp BP Pulse Ox 98.1 F 73 16 116/72 100 09/28/17 22:35 09/28/17 22:35 09/28/17 22:35 09/28/17 22:35 09/28/17 22:35 Interpretation: Normal - General General appearance: Appears well, Alert - HEENT Head: Normocephalic, Atraumatic Eyes: Normal Pupils: PERRL - Respiratory Respiratory status: No respiratory distress Chest status: Nontender Breath sounds: Normal Chest palpation: Normal - Cardiovascular Rhythm: Regular Heart sounds: Normal auscultation Murmur: No - Abdominal Inspection: Normal Distension: No distension Bowel sounds: Normal Tenderness: Nontender Organomegaly: No organomegaly - Back Back: Normal, Nontender - Extremities General upper extremity: Nontender, Normal color, Normal ROM, Normal temperature. No: Normal inspection - Left hand affected. Right hand does have an abrasion to the index finger and into the middle finger at the MCP joint. There is some mild swelling of the joints to as well. Patient has painful range of motion active and passive. No swelling to the digits no pain to palpation of the wrist General lower extremity: Normal inspection, Nontender, Normal color, Normal ROM , Normal temperature, Normal weight bearing. No: Ebonie's sign - Neurological Neuro grossly intact: Yes Cognition: Normal Orientation: AAOx4 [place] Coma Scale Eye Opening: Spontaneous [place] Coma Scale Verbal: Oriented [place] Coma Scale Motor: Obeys Commands [place] Coma Scale Total: 15 Speech: Normal Motor strength normal: LUE, RUE, LLE, RLE Sensory: Normal - Psychological Associated symptoms: Normal affect, Normal mood - Skin Skin Temperature: Warm Skin Moisture: Dry Skin Color: Normal Course - Re-evaluation Re-evalutation: 09/29/17 05:58 X-rays negative for occult fracture. Patient was placed in a cock-up splint. Patient was encouraged follow-up with orthopedics. Patient is on chronic opioid therapy according to the narcotic database. i encouraged patient to take tylenol motrin for her pain control. patient received oxycontin 30 mg 84 tablets filled on september 04. - Vital Signs Vital signs: Temp Pulse Resp BP Pulse Ox 98.6 F 71 16 111/77 98 09/29/17 01:24 09/29/17 01:24 09/29/17 01:24 09/29/17 01:24 09/29/17 01:24 Procedures - Immobilization Right Hand Immobilizer type: Cock-up Performed by: PCT Post-Proc Neuro Vasc Exam: Normal Alignment checked and good: Yes Discharge - Discharge Clinical Impression: Hand sprain Qualifiers: Encounter type: initial encounter Laterality: unspecified laterality Qualified Code(s): S63.90XA - Sprain of unspecified part of unspecified wrist and hand, initial encounter Hand injury Qualifiers: Encounter type: initial encounter Laterality: unspecified laterality Qualified Code(s): S69.90XA - Unspecified injury of unspecified wrist, hand and finger(s) , initial encounter Condition: Good Disposition: HOME, SELF-CARE Instructions: Sprain ([facility]) Additional Instructions: At this time your x-rays not showing signs of fracture. Please wear the splint as needed for comfort I would recommend following up with orthopedic doctor provided approximately 1 week. Return to ER symptoms worsen continue to ice and elevate also a he may place warm packs on the hand. Return to ER symptoms worsen. Referrals: JANINA GARCIA MD [Primary Care Provider] - Follow up as needed TONY LISA MD [ACTIVE STAFF] - Follow up in 3-5 days (call tomorrow for appointment)
[2017-09-29 01:25] VITALS: BP 111/77
== END 2017-09-29 01:28 | disposition home or self-care (01) ==
LOC: ER 21:34
DX: S63.90XA Sprain of unspecified part of unspecified wrist and hand, initial encounter (principal); M79.641 Pain in right hand; X50.9XXA Other and unspecified overexertion or strenuous movements or postures, initial encounter; Y93.K9 Activity, other involving animal care; J45.909 Unspecified asthma, uncomplicated; Z88.6 Allergy status to analgesic agent; Z88.5 Allergy status to narcotic agent
CPT/HCPCS: 99283; L3908

== ENCOUNTER → 2018-12-27 | Outpatient (CLI) | payer OTHER, MEDICAID ==
[2018-12-27 11:54] LABS: ABSOLUTE EOSINOPHILS # (AUTO) 0.2 10^3/uL (0.0-0.6); ABSOLUTE LYMPHOCYTES (AUTO) 1.8 10^3/uL (0.5-4.7); ABSOLUTE MONOCYTES (AUTO) 0.4 10^3/uL (0.1-1.4); ABSOLUTE NEUT (AUTO) 3.2 10^3/uL (1.7-8.2); BASOPHILS % (AUTO) 0.5 % (0-2); EOSINOPHILS % (AUTO) 3.1 % (0-6); HEMATOCRIT 41.3 % (36.0-47.0); HEMOGLOBIN 13.9 g/dL (12.0-15.5); LYMPHOCYTES % (AUTO) 31.5 % (13-45); MEAN CORPUSCULAR HEMOGLOBIN 29.2 pg (27.0-33.4); MEAN CORPUSCULAR HGB CONC 33.6 g/dL (32.0-36.0); MEAN CORPUSCULAR VOLUME 87 fl (80-97); MONOCYTES % (AUTO) 7.6 % (3-13); PLATELET COUNT 211 10^3/uL (150-450); RED BLOOD COUNT 4.75 10^6/uL (3.72-5.28); RED CELL DISTRIBUTION WIDTH 13.3 % (11.5-14.0); SEGMENTED NEUTROPHILS % (AUTO) 57.3 % (42-78); TOTAL CELLS COUNTED % (AUTO) 100 %; WHITE BLOOD COUNT 5.6 10^3/uL (4.0-10.5)
[2018-12-27 12:29] LABS: ALANINE AMINOTRANSFERASE 11 U/L (9-52); ALBUMIN 4.1 g/dL (3.5-5.0); ALKALINE PHOSPHATASE 71 U/L (38-126); ANION GAP 7 (5-19); ASPARTATE AMINO TRANSFERASE 15 U/L (14-36); BILIRUBIN,DIRECT 0.3 mg/dL (0.0-0.4); BILIRUBIN,TOTAL 0.6 mg/dL (0.2-1.3); BLOOD UREA NITROGEN 12 mg/dL (7-20); CALCIUM 9.1 mg/dL (8.4-10.2); CARBON DIOXIDE 26 mmol/L (22-30); CHLORIDE 107 mmol/L (98-107); GLUCOSE 80 mg/dL (75-110); POTASSIUM 4.7 mmol/L (3.6-5.0); SODIUM 140.4 mmol/L (137-145); TRIGLYCERIDES 139 mg/dL (<150)
[2018-12-27 12:40] LABS: DIRECT LDL 106 mg/dL (<100)
== END ==
LOC: OD 10:25
PROVIDERS: ATTEND Nurse Practitioner Psychiatric/Mental Health
DX: F31.9 Bipolar disorder, unspecified (principal); Z79.899 Other long term (current) drug therapy
CPT/HCPCS: 36415; 80053; 80061; 83036; 84439; 84443; 85025

== ENCOUNTER → 2019-05-22 | Outpatient (CLI) | payer OTHER, MEDICAID ==
--- NOTE | 2019-05-22 13:59 | RADIOLOGY REPORT (SQ) ---
EXAM DESCRIPTION: VENOUS UNILATERAL LOWER COMPLETED DATE/TIME: 05/22/2019 1:45 pm REASON FOR STUDY: RLE PAIN M79.609 PAIN IN UNSPECIFIED LIMB M79.89 OTHER SPECIFIED SOFT TISSUE DIS ORDERS COMPARISON: 05/12/2017 TECHNIQUE: Dynamic and static jeong scale and color images acquired of the right leg venous system. S elected spectral images acquired with additional compression and augmentation maneuvers. The contrala teral common femoral vein and saphenofemoral junction were also imaged. Images stored on PACS. LIMITATIONS: None. FINDINGS: COMMON FEMORAL: Normal phasicity, compression and augmentation. No visualized echogenic ma terial on jeong scale. No defects on color images. FEMORAL: Normal compression and augmentation. No visualized echogenic material on jeong scale. No defe cts on color images. POPLITEAL: Normal compression, augmentation. No visualized echogenic material on jeong scale. No defec ts on color images. CALF VESSELS: Normal compression, augmentation. No visualized echogenic material on jeong scale. No de fects on color images. GSV and SSV: Normal compression, augmentation. No visualized echogenic material on jeong scale. No def ects on color images. ANY DEEP VENOUS INSUFFICIENCY: Not evaluated. ANY EVIDENCE OF POPLITEAL CYST: No. OTHER: No other significant finding. CONTRALATERAL COMMON FEMORAL VEIN AND SAPHENOFEMORAL JUNCTION: Normal phasicity, compression and augmentation. No visualized echogenic material on jeong scale. No de fects on color images. IMPRESSION: NO EVIDENCE DVT OR SVT IN THE RIGHT LEG. TECHNICAL DOCUMENTATION: JOB ID: [id number] [employer]- All Rights Reserved Reading location - IP/workstation name: [email or web address]
== END ==
LOC: SP 12:26
PROVIDERS: ATTEND Internal Medicine
DX: M79.609 Pain in unspecified limb (principal); M79.89 Other specified soft tissue disorders
CPT/HCPCS: 93971

== ENCOUNTER → 2020-07-04 | Outpatient (CLI) | payer OTHER, MEDICAID ==
--- NOTE | 2020-07-04 11:07 | RADIOLOGY REPORT (SQ) ---
EXAM DESCRIPTION: MRI HEAD WITHOUT IMAGES COMPLETED DATE/TIME: 07/04/2020 10:56 am REASON FOR STUDY: (R51.9)HEADACHE, UNSPECIFIED Z86.79 PERSONAL HISTORY OF OTHER DISEASES OF THE CIR CULATORY M32.10 SYSTEMIC LUPUS ERYTHEMATOSUS, ORGAN OR SYSTEM INVOLV R51.9 HEADACHE, UNSPECIFIED COMPARISON: 07/04/2015 TECHNIQUE: Multiplanar imaging includes non-contrasted T1, T2, FLAIR, and diffusion with ADC map seq uences. Images stored on PACS. LIMITATIONS: None. FINDINGS: ANATOMY: No anomalies. Normal vascular flow voids. Pituitary fossa normal. CSF SPACES: Normal in size and contour. No hemorrhage. CEREBRUM: Sulci and gyri normal in size and contour. Normal white matter signal on FLAIR imaging. No evidence of hemorrhage, mass, or extraaxial fluid collection. POSTERIOR FOSSA: Right occipital craniotomy with stable chronic CSF fluid collection just superior to the foramen magnum. DIFFUSION IMAGING: Negative for acute or sub-acute infarction. ORBITS: No masses. Globes normal. PARANASAL SINUSES: No fluid levels. Mucosa normal. OTHER: No other significant finding. IMPRESSION: Stable right posterior fossa postsurgical changes. No acute findings. EVIDENCE OF ACUTE STROKE: NO. TECHNICAL DOCUMENTATION: JOB ID: [id number] 2010 [employer]- All Rights Reserved Reading location - IP/workstation name: [email or web address]
[2020-07-04 12:06] LABS: ABSOLUTE EOSINOPHILS # (AUTO) 0.1 10^3/uL (0.0-0.6); ABSOLUTE LYMPHOCYTES (AUTO) 1.1 10^3/uL (0.5-4.7); ABSOLUTE MONOCYTES (AUTO) 0.4 10^3/uL (0.1-1.4); BASOPHILS % (AUTO) 0.9 % (0-2); EOSINOPHILS % (AUTO) 1.7 % (0-6); HEMATOCRIT 42.9 % (36.0-47.0); HEMOGLOBIN 14.4 g/dL (12.0-15.5); LYMPHOCYTES % (AUTO) 24.6 % (13-45); MEAN CORPUSCULAR HEMOGLOBIN 29.4 pg (27.0-33.4); MEAN CORPUSCULAR HGB CONC 33.6 g/dL (32.0-36.0); MEAN CORPUSCULAR VOLUME 88 fl (80-97); MONOCYTES % (AUTO) 8.5 % (3-13); PLATELET COUNT 228 10^3/uL (150-450); RED BLOOD COUNT 4.89 10^6/uL (3.72-5.28); RED CELL DISTRIBUTION WIDTH 12.9 % (11.5-14.0); SEGMENTED NEUTROPHILS % (AUTO) 64.3 % (42-78); TOTAL CELLS COUNTED % (AUTO) 100 %; WHITE BLOOD COUNT 4.6 10^3/uL (4.0-10.5)
[2020-07-04 12:23] LABS: ALBUMIN 4.5 g/dL (3.5-5.0); ALKALINE PHOSPHATASE 67 U/L (38-126); ANION GAP 5 (5-19); ASPARTATE AMINO TRANSFERASE 18 U/L (14-36); BILIRUBIN,TOTAL 0.4 mg/dL (0.2-1.3); BLOOD UREA NITROGEN 15 mg/dL (7-20); CALCIUM 9.5 mg/dL (8.4-10.2); CARBON DIOXIDE 30 mmol/L (22-30); CHLORIDE 103 mmol/L (98-107); GLUCOSE 88 mg/dL (75-110); POTASSIUM 4.7 mmol/L (3.6-5.0); TOTAL PROTEIN 7.8 g/dL (6.3-8.2)
[2020-07-04 12:56] LABS: ERYTHROCYTE SEDIMENTATION RATE 10 mm/hr (0-20)
== END ==
LOC: RAD 10:21
PROVIDERS: ATTEND Obstetrics & Gynecology
DX: M32.9 Systemic lupus erythematosus, unspecified (principal); R51.9 Headache, unspecified; Z86.73 Personal history of transient ischemic attack (TIA), and cerebral infarction without residual deficits
CPT/HCPCS: 36415; 70551; 80053; 85025; 85652